=== PATIENT | female | born 1990 | race Caucasian/White ===

== ENCOUNTER 2023-02-28 10:16 | Outpatient (CLI) | payer BC, SELFPAY ==
[2023-02-28 10:53] LABS: Basophils Absolute Auto 0.1 K/mm3 (0.0-0.1); Basophils Percent Auto 0.9 % (0.2-1.2); Eosinophils Absolute Auto 0.1 K/mm3 (0-0.3); Eosinophils Percent Auto 0.8 % (0-4.4); Hematocrit 39.2 % (37.0-47.0); Hemoglobin 12.9 g/dL (12.0-15.0); Immature Granulocyte Absolute 0.01 K/mm3 (0.00-0.031); Immature Granulocyte Percent A 0.2 % (0-0.5); Lymphocytes Absolute Auto 1.42 K/mm3 (0.9-3.2); Lymphocytes Percent Auto 21.5 % (18.3-44.2); Mean Corpuscular HGB Conc 32.9 g/dl (32-36); Mean Corpuscular Hemoglobin 29.1 pg (26-34); Mean Corpuscular Volume 88.5 fl (80-100); Mean Platelet Volume 10.1 fl (7.4-10.4); Monocytes Absolute Auto 0.3 K/mm3 (0.1-0.6); Neutrophils Absolute Auto 4.7 K/mm3 (1.3-6.7); Neutrophils Percent Auto 71.6 % (45.5-73.1); Platelet Count Result 289 k/mm3 (150-375); Red Blood Count 4.43 M/mm3 (4.2-5.4); Red Cell Distribution Width 11.9 % (11.5-14.5); White Blood Count 6.6 K/mm3 (4.5-10.0)
[2023-02-28 12:01] LABS: Hepatitis B Surface Antigen Negative (Negative); Rubella IgG Antibody 16.8 IU/ML
[2023-02-28 12:07] LABS: HIV 1/2 Ab P24 Ag Result Negative (Negative)
[2023-02-28 13:18] LABS: Rapid Plasma Reagin Non-Reactive (NonReactive)
[2023-03-04 14:43] LABS: CMV IgG Antibody <0.60 U/mL (<0.60)
== END 2023-02-28 10:17 | disposition home or self-care (01) ==
LOC: ANHLAB 10:16
PROVIDERS: PCP Family Medicine; Visit Provider Obstetrics & Gynecology
DX: N94.89 Other specified conditions associated with female genital organs and menstrual cycle (principal)
CPT/HCPCS: 36415; 84702; 85025; 86592; 86644; 86703; 86747; 86762; 86787; 86850; 86900; 86901; 87086; 87340; G0432

== ENCOUNTER 2023-07-16 11:48 | Outpatient (RCR) | payer BC, SELFPAY ==
[2023-07-13 16:49] LABS: Basophils Absolute Auto 0.1 K/mm3 (0.0-0.1); Basophils Percent Auto 0.7 % (0.2-1.2); Eosinophils Absolute Auto 0.1 K/mm3 (0-0.3); Eosinophils Percent Auto 1.2 % (0-4.4); Hematocrit 32.1 % (37.0-47.0); Hemoglobin 10.5 g/dL (12.0-15.0); Immature Granulocyte Absolute 0.08 K/mm3 (0.00-0.031); Immature Granulocyte Percent A 0.9 % (0-0.5); Lymphocytes Absolute Auto 1.32 K/mm3 (0.9-3.2); Lymphocytes Percent Auto 15.3 % (18.3-44.2); Mean Corpuscular HGB Conc 32.7 g/dl (32-36); Mean Corpuscular Hemoglobin 30.1 pg (26-34); Mean Platelet Volume 9.1 fl (7.4-10.4); Monocytes Absolute Auto 0.5 K/mm3 (0.1-0.6); Monocytes Percent Auto 5.3 % (2.6-8.5); Neutrophils Absolute Auto 6.6 K/mm3 (1.3-6.7); Neutrophils Percent Auto 76.6 % (45.5-73.1); Platelet Count Result 280 k/mm3 (150-375); Red Blood Count 3.49 M/mm3 (4.2-5.4); Red Cell Distribution Width 12.7 % (11.5-14.5); White Blood Count 8.6 K/mm3 (4.5-10.0)
[2023-07-13 17:16] LABS: Glucose 1 Hour PP 50gm Dose 165 mg/dL
[2023-07-13 17:50] LABS: HIV 1/2 Ab P24 Ag Result Negative (Negative)
[2023-07-16] MEDS: RHO(D) IMMUNE GLOBULIN 300 MCG/2 ML SYRINGE IM (17:04)
== END 2023-07-16 11:50 | disposition home or self-care (01) ==
LOC: ANHLAB 11:48
PROVIDERS: PCP Family Medicine; Visit Provider Obstetrics & Gynecology
DX: Z11.4 Encounter for screening for human immunodeficiency virus [HIV] (principal); Z29.13 Encounter for prophylactic Rho(D) immune globulin; O36.0990 Maternal care for other rhesus isoimmunization, unspecified trimester, not applicable or unspecified; Z3A.00 Weeks of gestation of pregnancy not specified
CPT/HCPCS: 36415; 82947; 85025; 85461; 86703; 86850; 86900; 86901; 90384; 96372; G0432; J2790

== ENCOUNTER 2023-07-18 07:00 | Outpatient (CLI) | payer BC, SELFPAY ==
[2023-07-18 07:37] LABS: Glucose Fasting Gestational 83 mg/dL (>/=95)
[2023-07-18 09:13] LABS: Glucose 1 Hour Gest 113 mg/dL (>/=180)
[2023-07-18 10:32] LABS: Glucose 2 Hour Gest 112 mg/dL (>/= 155)
[2023-07-18 11:04] LABS: Glucose 3 Hour Gest 69 mg/dL (>/=140)
== END 2023-07-18 07:01 | disposition home or self-care (01) ==
PROVIDERS: PCP Family Medicine; Visit Provider Obstetrics & Gynecology
DX: R73.09 Other abnormal glucose (principal)
CPT/HCPCS: 36415; 82951; 82952

== ENCOUNTER 2023-09-19 09:11 | Observation (INO) | payer BC, SELFPAY ==
[2023-09-19 11:15] VITALS: BMI 23.4
--- NOTE | 2023-09-19 11:16 | OBADM ---
This patient, Kamala Coyne, admitted to the OB room Labor/Delivery/Recovery 105 for observation. Patient/family oriented to hospital policies and general routines including ID bracelet, bed and alarms, visiting hours, pain management, procedures, bathroom and other care routines, personal items, smoking policy, room service/diet, and visiting hours. Patient/Family are encouraged to report perceived risks to care and to ask questions if they do not understand what they are told or what they should do.
--- NOTE | 2023-09-19 11:26 | PC.NURSE ---
1105: RN phoned Dr. Juarez to report, Category 1 tracing, contractions pattern, pain of 2 out of 10, negative ROM plus, and recent Cervical exam of 1.5/thick/high. Orders to discharge patient home with instructions on when to return to the hospital.
--- NOTE | 2023-09-20 16:42 | PM.OBTRLD ---
OB - Triage/Final Diagnosis Visit Information Comments/Additional reasons for admission: I have assessed the risk for this patient, Kamala Coyne, and determined that she would benefit from observation care. Final Diagnosis (1) Vaginal discharge during : Code(s): O26.899 - Other specified related conditions, unspecified trimester; N89.8 - Other specified noninflammatory disorders of vagina Status: Acute
== END 2023-09-19 11:25 | disposition home or self-care (01) ==
PROVIDERS: Admitting Provider Obstetrics & Gynecology; Visit Provider Obstetrics & Gynecology
DX: O26.899 Other specified pregnancy related conditions, unspecified trimester (principal); N89.8 Other specified noninflammatory disorders of vagina; Z3A.00 Weeks of gestation of pregnancy not specified
CPT/HCPCS: G0378; G0379

== ENCOUNTER 2023-09-30 06:02 | Inpatient (IN) | payer BC, SELFPAY ==
[2023-09-30] VITALS (155 sets, daily range): BP systolic 64–132; BP diastolic 45–93; PULSE 61–125; TEMP 36.6–37; O2SAT 81–100; BMI 24.6
[2023-09-30 06:41] LABS: Basophils Percent Auto 0.6 % (0.2-1.2); Eosinophils Absolute Auto 0.1 K/mm3 (0-0.3); Hematocrit 33.7 % (37.0-47.0); Hemoglobin 11.5 g/dL (12.0-15.0); Immature Granulocyte Absolute 0.05 K/mm3 (0.00-0.031); Immature Granulocyte Percent A 0.7 % (0-0.5); Lymphocytes Absolute Auto 1.44 K/mm3 (0.9-3.2); Lymphocytes Percent Auto 20.3 % (18.3-44.2); Mean Corpuscular HGB Conc 34.1 g/dl (32-36); Mean Corpuscular Hemoglobin 30.1 pg (26-34); Mean Corpuscular Volume 88.2 fl (80-100); Mean Platelet Volume 9.9 fl (7.4-10.4); Monocytes Absolute Auto 0.4 K/mm3 (0.1-0.6); Monocytes Percent Auto 5.5 % (2.6-8.5); Neutrophils Absolute Auto 5.1 K/mm3 (1.3-6.7); Neutrophils Percent Auto 71.9 % (45.5-73.1); Platelet Count Result 210 k/mm3 (150-375); Red Blood Count 3.82 M/mm3 (4.2-5.4); Red Cell Distribution Width 13.5 % (11.5-14.5); White Blood Count 7.1 K/mm3 (4.5-10.0)
[2023-09-30] MEDS: miSOPROStol 25 MCG TABLET PO (06:59)
--- NOTE | 2023-09-30 07:17 | WPDANESEPP ---
Anes - Eval Pre Procedure Procedure: labor epidural Date/Time: 09/30/23 07:17 Surgeon: josé Preop Diagnosis: pain during labor Pre Op Diagnosis: IOL Patient Data Age: 33 Gender: F Height: Weight: Last Vital Signs Pulse 85 09/30/23 07:15 BP 109/81 09/30/23 07:15 Allergies Allergy/AdvReac Type Severity Reaction Status Date / Time codeine Allergy Severe Vomiting Verified 09/28/23 07:59 Home Medications Medication Instructions Recorded Confirmed Type PNV no.151-iron 27 mg-folic 800 cap PO 02/05/23 09/28/23 History mcg-omega3 260 rm-mev-hth-fish capsule ( Multi-DHA (with vitamin K)) doxylamine succinate 25 mg tablet 25 mg PO QHS PRN 02/05/23 09/28/23 History (Unisom (doxylamine)) pyridoxine (vitamin B6) 50 mg 25 mg PO DAILY 02/05/23 09/28/23 History tablet metoclopramide HCl 5 mg tablet 5 mg PO DAILY 05/31/23 09/28/23 History (Reglan) ferrous sulfate 325 mg (65 mg 325 mg PO DAILY 08/01/23 09/28/23 History iron) tablet (Feosol) sertraline 50 mg tablet 50 mg PO DAILY #90 tabs 09/09/23 09/28/23 Rx Laboratory Tests 09/30/23 06:35 WBC 7.1 K/mm3 (4.5-10.0) RBC 3.82 L M/mm3 (4.2-5.4) Hgb 11.5 L g/dL (12.0-15.0) Hct 33.7 L % (37.0-47.0) MCV 88.2 fl (80-100) MCH 30.1 pg (26-34) MCHC 34.1 g/dl (32-36) RDW 13.5 % (11.5-14.5) Plt Count 210 k/mm3 (150-375) MPV 9.9 fl (7.4-10.4) Immature Gran % (Auto) 0.7 H % (0-0.5) Neut % (Auto) 71.9 % (45.5-73.1) Lymph % (Auto) 20.3 % (18.3-44.2) [place] % (Auto) 5.5 % (2.6-8.5) Eos % (Auto) 1.0 % (0-4.4) Baso % (Auto) 0.6 % (0.2-1.2) Lymph # (Auto) 1.44 K/mm3 (0.9-3.2) [place] # (Auto) 0.4 K/mm3 (0.1-0.6) Eos # (Auto) 0.1 K/mm3 (0-0.3) Baso # (Auto) 0.0 K/mm3 (0.0-0.1) Abs Immat Gran (auto) 0.05 H K/mm3 (0.00-0.031) Absolute Neuts (auto) 5.1 K/mm3 (1.3-6.7) Absolute Nucleated RBC 0.000 K/mm3 (0.0-0.012) Nucleated RBC % 0.0 % (0.0-0.2) RPR Pending Patient hx anesthesia problems: none Family hx anesthesia problems: none Results Review: All pre-operative results and documents have been reviewed as part of the pre-operative evaluation. [facility] Past Medical History Medical History Amenorrhea Anxiety Encounter for insertion of mirena IUD 11/2021 Encounter for IUD removal 09/20/2022 Hyperlipidemia Seasonal allergies URI (upper respiratory infection) Family History Family History (Updated 09/12/23 @ 15:40 by Makeda Payan RN) Father Alcohol abuse Anxiety Depression Grandparent Mesothelioma Anxiety Depression Heart disease Breast cancer Carcinoma of colon Mother Anxiety Depression Sibling Anxiety Depression Bipolar 1 disorder Social History Social History Social History: Kamala is and has one child. 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 Caffeine- half calf Smoking status: Never smoker Alcohol intake: former Drinks per week: 4 Alcohol use details: wine- currently Substance use: never Substance use type: does not use Lack of Transportation: No Lack of Food: Never True Current Housing: I Have Housing Concerned About Future Housing: No Difficulty Paying Gas/Electric Bills: No Difficulty Paying for Meds: No Currently Unemployed: No Education: Master's Degree or Higher Difficulty w/ Childcare or Family Care: No Living arrangements: with family Additional living arrangements comments: and daughter Occupation/Education: occupation Gender identity (if verbalized by the patient): Female Sexual Orientation (if Verbalized by the Patient): Straight or Heterosexual Spiritual care concerns: No Agree to blood products: Yes Exam Day of Procedure 0
--- NOTE | 2023-09-30 07:21 | LDADM ---
This patient, Kamala Coyne, was admitted to Labor/Delivery/Recovery 104 on 09/30/23 at 06:02. Plans for labor, pain management and were discussed with patient. Patient/family oriented to hospital policies and general routines including ID bracelet, bed and alarms, visiting hours, pain management, procedures, bathroom and other care routines, personal items, smoking policy, room service/diet and guest tray routines, security routines, and visiting hours. Patient/Family are encouraged to report perceived risks to care and to ask questions if they do not understand what they are told or what they should do. See OBIX for further documentation.
--- NOTE | 2023-09-30 08:17 | PM.IMHP ---
H&P: HPI History of Present Illness Date/Time: 09/30/23 08:17 Chief Complaint: induction of labor Narrative: Kamala is a 33yo @ 39.3 who presents for induction of labor. She reports good movement. Irregular contractions. No VB or LOF. She has had regular care. Her is complicated by: - H/o FAVD - Anxiety - Rh neg; s/p rhogam Review of Systems Constitutional: Constitutional: Denies chills, Denies fever(s) and Denies headache(s) Eyes: Eyes: Denies change in vision ENT: Denies headache(s) Cardiovascular: Cardiovascular: Denies chest pain and Denies dyspnea Respiratory: Respiratory: Denies dyspnea Genitourinary: Genitourinary: Denies abnormal vaginal bleeding and Denies vaginal discharge Neurologic: Denies headache(s) Psychiatric: Psychiatric: Denies anxiety and Denies depression [facility] Past Medical History Medical History Amenorrhea Anxiety Encounter for insertion of mirena IUD 11/2021 Encounter for IUD removal 09/20/2022 Hyperlipidemia Seasonal allergies URI (upper respiratory infection) Family History Family History (Updated 09/12/23 @ 15:40 by Makeda Payan RN) Father Alcohol abuse Anxiety Depression Grandparent Mesothelioma Anxiety Depression Heart disease Breast cancer Carcinoma of colon Mother Anxiety Depression Sibling Anxiety Depression Bipolar 1 disorder Social History Social History Social History: Kamala is and has one child. 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 Caffeine- half calf Smoking status: Never smoker Alcohol intake: former Drinks per week: 4 Alcohol use details: wine- currently Substance use: never Substance use type: does not use Do You Feel Safe in your Home?: Yes Lack of Transportation: No Lack of Food: Never True Current Housing: I Have Housing Concerned About Future Housing: No Difficulty Paying Gas/Electric Bills: No Difficulty Paying for Meds: No Currently Unemployed: No Education: Master's Degree or Higher Difficulty w/ Childcare or Family Care: No Living arrangements: with family Additional living arrangements comments: and daughter Occupation/Education: occupation Gender identity (if verbalized by the patient): Female Sexual Orientation (if Verbalized by the Patient): Straight or Heterosexual Spiritual care concerns: No Agree to blood products: Yes Meds Home Medications and Allergies Home Medications Medication Instructions Recorded Confirmed Type PNV no.151-iron 27 mg-folic 800 1 cap PO DAILY 02/05/23 09/30/23 History mcg-omega3 260 pz-tgi-uaj-fish capsule ( Multi-DHA (with vitamin K)) ferrous sulfate 325 mg (65 mg 325 mg PO DAILY 08/01/23 09/30/23 History iron) tablet (Feosol) sertraline 50 mg tablet 50 mg PO DAILY #90 tabs 09/09/23 09/30/23 Rx omega-3 fatty acids 300 mg capsule 1,500 mg PO DAILY 09/30/23 09/30/23 History Allergies Allergy/AdvReac Type Severity Reaction Status Date / Time codeine Allergy Severe Vomiting Verified 09/28/23 07:59 Vital Signs Vital Signs - 24 hr 09/30/23 07:18 09/30/23 06:47 09/30/23 07:00 Temperature 97.9 F Pulse Rate 75 82 Blood Pressure 100/68 118/75 Oxygen Delivery Room Air 09/30/23 07:15 09/30/23 07:30 09/30/23 07:45 Temperature Pulse Rate 85 71 70 Blood Pressure 109/81 113/70 120/76 Oxygen Delivery 09/30/23 08:00 Temperature Pulse Rate 67 Blood Pressure 122/86 Oxygen Delivery Exam Const: General: cooperative, healthy appearing and no acute distress Orientation/consciousness: patient oriented x3 Resp: Effort & Inspection: normal respiratory effort Cardio: Rate: regular rate GI: GI Palp: No abdominal tenderness : Other: FHT's: 150's/ mod gibran/ + accels/ no dec
[2023-09-30] MEDS: LACTATED RINGERS 1,000 ML 125 ML IV CONT (11:12)
[2023-09-30] MEDS: OXYTOCIN 30 UNITS/NS 500 ML 30 UNITS/500 ML BAG IV CONT (11:13)
--- NOTE | 2023-09-30 12:16 | PM.OBPNLAB ---
Pain Control Date/time seen: 09/30/23 12:16 Pain control: tolerating well Pelvic Exam Dilation (cm): 3 Effacement (%): 70 station: -2 Amniotic membrane status: Ruptured (AROM, clear 1213) Contractions Monitor mode: External Contraction frequency: 2 Status status: Category l Assessment and Plan Pitocin rate (mU/min): 2 Assessment: induction ongoing Plan: continuous present management
[2023-09-30] MEDS: LACTATED RINGERS 1,000 ML 999 ML IV CONT ×2 (14:55→21:12)
[2023-09-30] MEDS: ONDANSETRON INJ 4 MG/2 ML VIAL IV PUSH (15:03)
--- NOTE | 2023-09-30 19:24 | PM.OBPNLAB ---
Pain Control Date/time seen: 09/30/23 19:24 Pain control: epidural Pelvic Exam Dilation (cm): 8 Effacement (%): 70 station: -1 Amniotic membrane status: Ruptured (AROM, clear 1213) Contractions Monitor mode: External Contraction frequency: 5 Status status: Category l Assessment and Plan Pitocin rate (mU/min): 6 Assessment: active labor Plan: continuous present management
[2023-09-30] MEDS: OXYTOCIN 30 UNITS/NS 500 ML 30 UNITS/500 ML BAG 999 UNITS IV CONT (21:37)
[2023-09-30] MEDS: OXYTOCIN 30 UNITS/NS 500 ML 30 UNITS/500 ML BAG 125 UNITS IV CONT (22:10)
--- NOTE | 2023-09-30 22:56 | PM.OBPRVD ---
OB - Vaginal Delivery Note Procedure Delivery date: 09/30/23 Events: Elective Induction of Labor Induction method: Per Misoprostol Protocol Delivery augmentation: Rupture of Membranes and Pitocin Delivery monitor: External FHT and External Uterine Route of delivery: Laceration Description: Perineal - 1st Degree Delivery repair: vicryl Specimen: No Quantitative Blood Loss (ml): 350 Anesthesia type: Epidural Disposition: Floor Complications: No immediate complications [place] Baby Date of : 09/30/23 Time of : 21:35 Weeks of gestation at delivery: 39 (.3) gender: Female Weight (pounds): 7 Weight (ounces): 2 presentation: vertex Placenta delivery description: Expressed Cord Vessel Description: 3 Vessels and Delayed Cord Clamping score one minute: 9 score five minutes: 9 Narrative: Samantha progressed to complete dilation and began pushing with good maternal effort. She pushed for approximately 15 minutes and delivered the head over intact perineum. No nuchal cord was noted. She easily delivered the 's shoulders and body without complication. The infant was immediately placed skin to skin and she had spontaneous cry. The mouth and nose were bulb suction. Delayed cord clamping was performed. The umbilical cord was then doubly clamped and cut. A segment of the cord was collected for cord gases. The remaining cord blood was collected for typing. With Pitocin running and gentle downward traction on the cord, the placenta delivered without complications. Brisk bleeding was noted but resolved with bimanual massage. She was examined and a small first-degree perineal laceration was noted. It was reapproximated using a single stitch of 2-0 Vicryl. Good hemostasis was noted. Uterus was found to be firm with minimal bleeding. Sponge, lap, instrument, and needle counts were correct at the of the procedure. Mom and baby were left bonding in the birthing suite in stable condition.
[2023-10-01] MEDS: SERTRALINE HCL 50 MG TABLET PO ×2 (01:01→21:22)
[2023-10-01 01:20] VITALS: BP 116/76; PULSE 66; RESP 16; TEMP 37.1; O2SAT 100
[2023-10-01] MEDS: IBUPROFEN 600 MG TABLET PO (02:32)
--- NOTE | 2023-10-01 02:56 | OBPPTRN ---
10/01/2023 at 0007 Patient transferred to post room #290. Support person present. Oriented to unit, room, information board, rooming in, admission packet and security measures. Patient verbalizes understanding.
[2023-10-01 04:30] VITALS: BP 93/63; PULSE 99; RESP 16; TEMP 36.4; O2SAT 99
--- NOTE | 2023-10-01 04:42 | PC.NURSE ---
10/01/2023 at 0120 Patient states she received her TDAP vaccine from [facility] around 34 weeks gestatation.
[2023-10-01 05:17] LABS: Hematocrit 32.9 % (37.0-47.0); Hemoglobin 11.1 g/dL (12.0-15.0)
--- NOTE | 2023-10-01 06:42 | PM.OBPNVD ---
OB - PN: Subj Subjective Date/time seen: 10/01/23 06:42 Narrative: PPD#1 Xiomara reports doing well today. 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 Her pain is controlled. She is tolerating regular diet, voiding, passing gas, and ambulating without issues. She is breast feeding. OB - PN: Obj Data Labs 10/01/23 04:33 Labs: Laboratory Results - last 24 hr 09/30/23 10/01/23 06:35 04:33 WBC 7.1 RBC 3.82 L Hgb 11.5 L 11.1 L Hct 33.7 L 32.9 L MCV 88.2 MCH 30.1 MCHC 34.1 RDW 13.5 Plt Count 210 MPV 9.9 Immature Gran % (Auto) 0.7 H Neut % (Auto) 71.9 Lymph % (Auto) 20.3 [place] % (Auto) 5.5 Eos % (Auto) 1.0 Baso % (Auto) 0.6 Lymph # (Auto) 1.44 [place] # (Auto) 0.4 Eos # (Auto) 0.1 Baso # (Auto) 0.0 Abs Immat Gran (auto) 0.05 H Absolute Neuts (auto) 5.1 Absolute Nucleated RBC 0.000 Nucleated RBC % 0.0 Blood Type O Negative Antibody Screen Positive Antibody Identification Passive Due to RH Imm Glob Antigen Identification TNP MAYCOL, IgG Interpret Negative MAYCOL, Poly Interpret TNP MAYCOL, Complement Interp Negative OB - PN A/P Assessment and Plan (1) Normal vaginal delivery of second : Code(s): O80 - Encounter for full-term uncomplicated delivery Status: Acute Plan day: 1 Plan: routine care Comments: - PO pain meds - Regular diet - Ambulation and hydration encouraged - Continue putting baby to breast q2-3hr Time Spent With Patient Time: Total time spent is greater than 50% in coordination of care (as documented) at patient's floor/unit and/or counseling patient: Review of Systems Constitutional: Constitutional: Denies chills, Denies fever(s) and Denies headache(s) Eyes: Eyes: Denies change in vision ENT: Denies dizziness and Denies headache(s) Cardiovascular: Cardiovascular: Denies chest pain, Denies palpitations and Denies dyspnea Respiratory: Respiratory: Denies cough and Denies dyspnea Gastrointestinal: Gastrointestinal: Denies nausea and Denies vomiting Neurologic: Denies dizziness and Denies headache(s) Endocrine: Endocrine: Denies palpitations Exam Const: General: cooperative, comfortable and no acute distress Orientation/consciousness: patient oriented x3 Resp: Effort & Inspection: normal respiratory effort Auscultation: clear to auscultation bilaterally Cardio: Rate: regular rate GI: Inspection: non-distended GI Palp: No abdominal tenderness and Yes Soft to palpation Auscultation: normal bowel sounds : Other: fundus firm Skin: General skin exam: normal color Neuro: General: patient oriented x3 Extrem: General: normal to inspection Psych: Appearance: grossly normal Affect: normal affect Attitude: cooperative
[2023-10-01] MEDS: MULTIVIT/MIN/PREN/FOL AC/IRON TABLET 1 TAB PO (07:02)
[2023-10-01 07:45] VITALS: BP 107/65; PULSE 77; RESP 18; TEMP 37.5; O2SAT 99
--- NOTE | 2023-10-01 11:08 | WPDANLDPN2 ---
Anes-Prog Note L&D Date/Time: 10/01/23 11:08 Comfortable throughout: labor and delivery Neuraxial method: epidural Epidural/Spinal procedure site: clean & non-tender Neuro status: Neuro function grossly intact. Cardiovascular status: normal Respiratory status: normal Airway patency: baseline Mental status: baseline Post-Op hydration status: normal Vital Signs: Last Vital Signs Temp 99.5 F 10/01/23 07:45 Pulse 77 10/01/23 07:45 Resp 18 10/01/23 07:45 BP 107/65 10/01/23 07:45 Pulse Ox 99 10/01/23 07:45 O2 Del Method Room Air 09/30/23 07:18 Pain score (VAS): 0/10 Post-procedural complaints: none Patient feedback: Patient satisfied with anesthetic care.
[2023-10-01 12:36] VITALS: BP 108/73; PULSE 72; RESP 16; TEMP 37.1; O2SAT 100
[2023-10-01 14:35] LABS: Rapid Plasma Reagin Non-Reactive (NonReactive)
--- NOTE | 2023-10-01 15:29 | PC.NURSE ---
[id number] Introductions were made, and mother has latched to the breast. Mother shared that the nipple is tender. brings the tongue up and fills the mouth space, tongue sucks at times and curls the tongue. Education given to mother to attempt the asymmetrical latch bringing the chin buried into the breast after patiently waiting for her to give her the big, open, wide gape aiming the nipple to the soft palate/back of the tongue location. After assisting with a off set deeper latch mother shared it was more comfortable. The has had more than enough voids and stools for hours of life. Encouraged mother to support her body, sit comfortable and bring to her rather than the breast to the . Father of baby is supportive. Parents voiced understanding the information and will practice a deeper latch. Reported to the Primary RN.
[2023-10-01] MEDS: RHO(D) IMMUNE GLOBULIN 300 MCG/2 ML SYRINGE IM (18:53)
[2023-10-01 20:45] VITALS: BP 96/64; PULSE 89; RESP 18; TEMP 36.8; O2SAT 100; O2SAT 97
--- NOTE | 2023-10-02 06:33 | PM.OBDSVD ---
DS: Admitting Diagnosis Discharge Date 10/02/23 Admitting Diagnosis Induction of labor DS: Discharge Diagnosis Discharge Diagnosis (1) Normal vaginal delivery of second : Code(s): O80 - Encounter for full-term uncomplicated delivery Status: Acute OB - DS: Summary OB Procedures : Ultrasound OB Procedures Intrapartum: Spontaneous Vag Delivery OB Procedures: : RHo (D) lg Peripartum Data Infant Delivery Method: Natural Vaginal Laceration Description: Perineal - 1st Degree Episiotomy description: None complications: none [place] 1: Gender: Female Disposition of : home Status at Discharge Functional status at discharge: independent ambulation Overall status at discharge: patient is back to baseline Time Spent with Patient Time attestation: Total time spent providing and/or coordinating discharge services: Exam Const: General: cooperative, healthy appearing, comfortable and no acute distress Orientation/consciousness: patient oriented x3 Resp: Effort & Inspection: normal respiratory effort Auscultation: clear to auscultation bilaterally Cardio: Rate: regular rate GI: Inspection: non-distended GI Palp: No abdominal tenderness and Yes Soft to palpation Auscultation: normal bowel sounds : Other: fundus firm Skin: General skin exam: normal color Neuro: General: patient oriented x3 Extrem: General: normal to inspection Psych: Appearance: grossly normal Affect: normal affect Attitude: cooperative DS: Data Data Completed and Pending Labs on day of discharge: Labs from last 24 hours 10/01/23 09/30/23 13:58 06:35 RPR Non-reactive Blood Type O Negative Antibody Screen TNP Screen Negative Baby's Blood Type B neg Baby's MAYCOL Positive Doses of RhIg Required 1 Discharge Plan Discharge Attending physician on discharge: Aisha Juarez Discharging Clinician: Aisha Juarez Anticipated Discharge Date/Time: 10/02/23 09:00 Patient Disposition: Home, Self-Care Activity: may shower and pelvic rest Diet: regular Patient Instructions: Vaginal Delivery (DC) Stand Alone Forms: General Discharge Information Follow-up/Referrals: Aisha Juarez MD [Physician] - 4 Weeks Discharge Medications: New acetaminophen 325 mg Tablet 650 mg PO Q6H PRN (Reason: Mild Pain (1-3) Or Headache) Qty: 60 0RF docusate sodium 100 mg Capsule 100 mg PO BID PRN (Reason: Constipation) Qty: 90 0RF ibuprofen 600 mg Tablet 600 mg PO Q6H PRN (Reason: Cramping) Qty: 40 0RF Continued ferrous sulfate [Feosol] 325 mg (65 mg iron) tablet 325 mg PO DAILY Multi-DHA(with vit K) 27 mg iron-800 mcg-260 mg capsule 1 cap PO DAILY Fish Oil 300 mg Capsule 1,500 mg PO DAILY sertraline 50 mg tablet 50 mg PO DAILY Qty: 90 3RF Date of admission: 09/30/23 06:02 Primary Care Provider: PHYSICIAN,SQL DATA ARCHITECT Admitting Provider: Aisha Juarez Attending physician on admission: Aisha Juarez Condition: Stable
[2023-10-02 08:15] VITALS: BP 115/78; PULSE 55; RESP 16; TEMP 37.3; O2SAT 99
--- NOTE | 2023-10-02 09:59 | PC.NURSE ---
[id number] Consulted with mother concerning needs and she shared her ability to independently latch optimally without pain. Mother is feeding appropriately for growth of infant and understands stimulating to eat if needed. has had appropriate feedings in the last 24 hours meets the outcomes for weight, output, blood sugar and jaundice at this time. Mother voiced understanding of the information shared, is confident to continue effectively her at home, when to call for assistance, denies any additional assistance or education at this time.
[2023-10-02] MEDS: MULTIVIT/MIN/PREN/FOL AC/IRON TABLET 1 TAB PO (10:19)
[2023-10-03 09:22] VITALS: BP 105/76; PULSE 80; RESP 18; TEMP 36.9; O2SAT 100
== END 2023-10-02 11:50 | disposition home or self-care (01) | DRG 807 ==
LOC: ANHLDR 06:07 → ANHOB2 10-01 00:27
PROVIDERS: Admitting Provider Obstetrics & Gynecology; Visit Provider Obstetrics & Gynecology
DX: O99.344 Other mental disorders complicating childbirth (principal); Z37.0 Single live birth; O70.0 First degree perineal laceration during delivery; F41.9 Anxiety disorder, unspecified; Z3A.39 39 weeks gestation of pregnancy
CPT/HCPCS: 36415; 85014; 85018; 85025; 85461; 86592; 86850; 86880; 86900; 86901; 90384; A9270; J2405; J2590; J2790; J2795; J7120